=== PATIENT | female | born 1995 ===

== ENCOUNTER 2018-03-15 16:23 | Emergency (ER) | payer OTHER ==
--- NOTE | 2018-03-15 16:48 | C.PDOC ---
History Of Present Illness 23 y/o with history of migraines presents to the ED for SOB. Patient states she was at her brother's graduation when she felt a sudden headache. She reports not being able to catch her breath. She didn't have any Motrin or Tylenol on hand so she decided to come to the ER. Of note, while talking she sounds nasal like and congested. Denies any fever, chills, abdominal pain, or throat pain. PMD: none provided Time Seen by Provider: 03/15/18 16:38 Chief Complaint (Nursing): Shortness Of Breath History Per: Patient History/Exam Limitations: no limitations Onset/Duration Of Symptoms: Hrs Current Symptoms Are (Timing): Still Present Recent travel outside of the [place]: No Past Medical History Reviewed: Historical Data, Nursing Documentation, Vital Signs Vital Signs: Last Vital Signs Temp 98.4 F 03/15/18 17:21 Pulse 97 H 03/15/18 17:21 Resp 15 03/15/18 17:21 BP 110/75 03/15/18 17:21 Pulse Ox 97 03/15/18 17:21 - Medical History PMH: Migraine Surgical History: No Surg Hx Family History: States: No Known Family Hx - Social History Hx Tobacco Use: No Hx Alcohol Use: Yes Hx Substance Use: No - Immunization History Hx Tetanus Toxoid Vaccination: No Hx Influenza Vaccination: No Hx Pneumococcal Vaccination: No Review Of Systems Except As Marked, All Systems Reviewed And Found Negative. Constitutional: Negative for: Fever, Chills ENT: Negative for: Throat Pain Respiratory: Positive for: Shortness of Breath Gastrointestinal: Negative for: Abdominal Pain Neurological: Positive for: Headache Physical Exam - Physical Exam Appears: Non-toxic, No Acute Distress Skin: Normal Color, Warm, Dry Head: Atraumatic Eye(s): bilateral: Normal Inspection, PERRL, EOMI ED Course And Treatment O2 Sat by Pulse Oximetry: 100 (RA) Pulse Ox Interpretation: Normal Medical Decision Making Medical Decision Making: Time: 16:34 Impression: Migraines, allergies, nasal congestion Initial Plan: * Tylenol 975 mg PO * Motrin 600 mg PO * Claritin 10 mg PO * Patient feeling better, requesting to be discharged. Scribe Attestation: Documented by Katelyn Kwon acting as a scribe Dee Kern MD. MD German Attestation: All medical record entries made by the Scribe were at my direction and personally dictated by me. I have reviewed the chart and agree that the record accurately reflects my personal performance of the history, physical exam, medical decision making, and the department course for this patient. I have also personally directed, reviewed, and agree with the discharge instructions and disposition. Disposition Counseled Patient/Family Regarding: Diagnosis, Need For Followup, Rx Given - Disposition Disposition: HOME/ ROUTINE Disposition Time: 18:34 Condition: STABLE Prescriptions: Ibuprofen [Motrin] 600 mg PO TID #15 tab Instructions: Migraine Headache (DC) Forms: [employer] ([employer]) [employer] (Yakut), General Discharge Instructions - Clinical Impression Clinical Impression: Migraine, Nasal congestion
[2018-03-15 17:22] VITALS: BP 110/75; PULSE 97; RESP 15; TEMP 98.4
[2018-03-15] MEDS ORDERED: Sodium Chloride 0.9% 1,000 ML IV ONE (17:42)
[2018-03-15] MEDS ORDERED: Sodium Chloride 0.9% 1,000 ML ONE (17:53)
[2018-03-15] MEDS ORDERED: Fluticasone Nasal 50 mcg/Spray NS STA (18:14)
[2018-03-15] MEDS ORDERED: Oxymetazoline 0.05% Nasal Spray (30 ml) NS ONE ×2 (18:27→18:30)
[2018-03-15 18:36] VITALS: O2SAT 100
--- NOTE | 2018-03-18 13:40 | CARD ---
APPROVED REPORT EKG Measurement Heart [id number] <Conclusion> Sinus tachycardia Nonspecific T wave abnormality Abnormal ECG
== END 2018-03-15 18:56 | disposition home or self-care (01) ==
LOC: C.ER 16:23
DX: G43.909 Migraine, unspecified, not intractable, without status migrainosus (principal); R09.81 Nasal congestion
CPT/HCPCS: 96361; 96374; 99285; J2765; J7030